=== PATIENT | female | born 1985 | race Caucasian/White ===

== ENCOUNTER → 2022-08-18 09:37 | Outpatient (CLI) | payer OTHER, SELFPAY ==
--- NOTE | ~2022-08-18 | US_ITS ---
EXAMINATION: US pelvic complete w TV DATE: 08/18/2022 10:24 INDICATION: Abnormal uterine bleeding Comparison:No prior studies for comparison. TECHNIQUE: Multiple transabdominal and endovaginal sonographic images of the pelvis performed. FINDINGS: The uterus measures 11.6 x 5.3 x 6.1 cm. There are uterine fibroids, largest measuring 1.4 cm. There is a smaller 1.1 cm fibroid posteriorly. The endometrial complex measures 8 mm. There are n abothian cysts. The right ovary measures 4.7 x 2.2 x 3.6 cm and the left ovary measures 4 x 2.9 x 2.6 cm. There are small follicles in each ovary. Normal doppler signal in both ovaries. There is no free fluid in the pelvis. There are no abnormal masses seen on either side. IMPRESSION: 1. Enlarged fibroid uterus. Reviewed, dictated and finalized at location A. IMPRESSION: 1. Enlarged fibroid uterus.
== END ==
PROVIDERS: PCP Obstetrics & Gynecology; Visit Provider Obstetrics & Gynecology
DX: N93.9 Abnormal uterine and vaginal bleeding, unspecified (principal); D25.9 Leiomyoma of uterus, unspecified
CPT/HCPCS: 76830; 76856

== ENCOUNTER 2022-08-18 10:38 | Outpatient (CLI) | payer OTHER, SELFPAY ==
[2022-08-18 11:12] LABS: Basophils Percent Auto 0.4 % (0.2-1.2); Eosinophils Absolute Auto 0.1 K/mm3 (0-0.3); Hematocrit 26.9 % (37.0-47.0); Hemoglobin 7.6 g/dL (12.0-15.0); Immature Granulocyte Absolute 0.02 K/mm3 (0.00-0.031); Immature Granulocyte Percent A 0.4 % (0-0.5); Lymphocytes Percent Auto 30.1 % (18.3-44.2); Mean Corpuscular HGB Conc 28.3 g/dl (32-36); Mean Corpuscular Hemoglobin 21.6 pg (26-34); Mean Corpuscular Volume 76.4 fl (80-100); Mean Platelet Volume 9.7 fl (7.4-10.4); Monocytes Absolute Auto 0.3 K/mm3 (0.1-0.6); Neutrophils Absolute Auto 2.8 K/mm3 (1.3-6.7); Neutrophils Percent Auto 60.1 % (45.5-73.1); Platelet Count Result 349 k/mm3 (150-375); Red Blood Count 3.52 M/mm3 (4.2-5.4); Red Cell Distribution Width 17.2 % (11.5-14.5); White Blood Count 4.7 K/mm3 (4.5-10.0)
[2022-08-18 11:39] LABS: Beta HCG Quantitative < 2.39 mIU/ML
[2022-08-18 11:48] LABS: Ovalocytes 1+ (NORMAL); Platelet Estimate Adequate (Adequate); Poikilocytosis 1+ (NORMAL); Schistocytes None Seen (NORMAL)
[2022-08-21 12:06] LABS: DHEA-Sulfate 179 mcg/dL (23-266)
[2022-08-21 14:13] LABS: Testosterone Free 2.4 pg/mL (0.1-6.4); Testosterone Total 21 ng/dL (2-45)
[2022-08-22 07:09] LABS: FSH 7.5 mIU/mL (***); Progesterone 0.3 ng/mL (***); Prolactin 19.4 ng/mL (***)
[2022-08-26 04:11] LABS: Estradiol, Ultrasensitive 29 pg/mL
== END 2022-08-18 10:39 | disposition home or self-care (01) ==
LOC: ANHLAB 10:40
PROVIDERS: PCP Internal Medicine; Visit Provider Obstetrics & Gynecology
DX: N93.9 Abnormal uterine and vaginal bleeding, unspecified (principal)
CPT/HCPCS: 36415; 76830; 76856; 82627; 82670; 83001; 84144; 84146; 84402; 84403; 84702; 85025

== ENCOUNTER 2022-08-19 00:34 | Day surgery (SDC) | payer OTHER, SELFPAY ==
[2022-08-18 09:15] VITALS: BMI 45.1
--- NOTE | 2022-08-18 09:20 | PC.NURSE ---
Report to the Outpatient Waiting Room, entrance under the green pavilion located off [facility], at time 1000 on date 08/19/22. OR Time: 1200. Time changes happen often and if your time is changed the preop area will call you the afternoon before. - You and your visitor will be asked to self-screen and do not enter if you have any COVID symptoms. - Only one visitor and NO children visitors are allowed at this time. - The patient visitor is requested to leave or wait in car when not with patient due to restrictions. - A mask is required within the hospital. Patients may have clear liquids (water, carbonated beverages, clear teas, apple juice) until 3 hours prior to surgery with a maximum of 20 ounces. - No food from midnight until time of surgery Take the following medications with a SIP of water the morning of surgery: FLUOXETINE Medications to discontinue per physician: N/A Date to take last dose: N/A Please no make-up, nail colombian, hairspray, perfume, deodorant, or body powder the day of surgery. No jewelry (including any body piercings) or valuables the day of surgery, leave them at home. Please take a shower or bath the night before, or the morning of, surgery with an antibacterial soap. Wear comfortable, loose fitting clothing. - Jewelry must be removed prior to entering the operating room. Rings and piercings that are not removed may be cut off. - The hospital will not accept responsibility for valuables. - Please leave all valuables, including medications, at home the day of surgery. If you are going home after surgery, a licensed electric truck driver must drive you home. - NO public transportation without another adult. - We recommend that an adult stay with you for 24 hours following discharge. - We also recommend that you do not drive, make important decision, drink alcoholic beverages, or take any drugs that were not prescribed by your health care provider for at least 24 hours after your discharge time. Follow any additional instructions given to you from your surgeon. If you or anyone in your household have experienced Covid symptoms in the past week, please notify your surgeon or the nurse liaison at the phone number below for possible testing. Telephone instructions given to PT - EVONNE VEGA and asked if any additional questions and then verbalized understanding. Patient advised to call surgeon office or pre surgery nurse liaison [phone] if any additional questions.
--- NOTE | 2022-08-18 16:57 | PM.IMHP ---
H&P: HPI History of Present Illness Date/Time: 08/18/22 16:57 Chief Complaint: abnormal vaginal bleeding Narrative: Antionette is a 36yo P1001, LMP 07/23/22 who presents for surgery for AUB. She was last seen in 01/2021 where she was reporting irregular bleeding (in 2019, she was going months without a cycle). PCOS w/u was negative last year at that time (we don't have US results). She reports this cycle started about 1 month ago and continues to be very heavy; with golf ball sized clots. Went to [facility] last night and was told she's anemic. The prior cycles were normal, monthly, not too heavy or painful. She has been having unprotected intercourse. Beta HCG was negative 08/18/22; but hemoglobin was noted to be 7.6. [facility] PERFORMER US 08/18/22 showed fibroid uterus, lining 8mm, polycystic ovaries. Review of Systems Review of Systems: All systems reviewed & are unremarkable except as noted in HPI and below PMFSH Past Medical History Medical History (Updated 08/18/22 @ 17:01 by Margret Barriga MD) Anxiety disorder Asthma Hypertension Obesity Sleep apnea Surgical History Surgical History Delivery by section Family History Family History Other Diabetes mellitus Hypertension Social History Social History Smoking status: Never smoker Alcohol intake: never Substance use: never Substance use type: does not use Gender identity (if verbalized by the patient): Female Sexual Orientation (if Verbalized by the Patient): Straight or Heterosexual Spiritual care concerns: No Meds Home Medications and Allergies Home Medications Medication Instructions Recorded Confirmed Type ferrous sulfate 325 mg (65 mg 325 mg PO BID #30 tabs 08/18/22 Rx iron) tablet fluoxetine 20 mg capsule 20 mg PO DAILY 08/18/22 08/18/22 History lisinopril 30 mg tablet 30 mg PO DAILY 08/18/22 08/18/22 History omeprazole 20 mg capsule,delayed 20 mg PO DAILY 08/18/22 08/18/22 History release Allergies Allergy/AdvReac Type Severity Reaction Status Date / Time doxycycline Allergy Severe Rash Uncoded 08/18/22 09:14 Effexor Allergy Severe Unknown Uncoded 08/18/22 09:14 Lexapro Allergy Severe Unknown Uncoded 08/18/22 09:14 Exam Const: General: cooperative, comfortable and no acute distress Nutritional Appearance: obese morbidly obese Resp: Effort & Inspection: normal respiratory effort Cardio: Rate: regular rate GI: Inspection: normal to inspection GI Palp: No abdominal tenderness and Yes Soft to palpation : Other: deferred to OR Skin: General skin exam: normal color Neuro: General: patient oriented x3 Extrem: General: normal to inspection Assessment and Plan Assessment and plan (1) Abnormal uterine bleeding: Code(s): N93.9 - Abnormal uterine and vaginal bleeding, unspecified Status: Acute (2) Anemia: Qualifiers: Anemia type: iron deficiency Iron deficiency anemia type: chronic blood loss Qualified Code(s): D50.0 - Iron deficiency anemia secondary to blood loss (chronic) Code(s): D64.9 - Anemia, unspecified Status: Acute Plan - Proceed with hysteroscopy with dilation and curettage; possible myomectomy if submucosal fibroid noted - Risks and benefits explained in detail - Will start progesterone post-op to prevent further bleeding/thickened lining
[2022-08-19 10:34] VITALS: BP 138/79; PULSE 85; RESP 18; TEMP 36.3; O2SAT 100
[2022-08-19] MEDS: ACETAMINOPHEN 500 MG TABLET 1000 MG PO (10:52)
--- NOTE | 2022-08-19 10:59 | P.PNAN_ITS ---
Anes - Initial Pre Proc Eval Procedure: Operation Date: 08/19/22 12:00 Proposed Procedures p Hysteroscopy with Dilation and Curettage - Margret Barriga MD Date/Time: 08/19/22 10:59 Surgeon: Margret Barriga MD Pre Op Diagnosis: Menometrorrhagia Patient Data Age: 36 Gender: F Height: 1.55 m Weight: 108.41 kg Allergies Allergy/AdvReac Type Severity Reaction Status Date / Time doxycycline Allergy Severe Rash Uncoded 08/18/22 09:14 Effexor Allergy Severe Unknown Uncoded 08/18/22 09:14 Lexapro Allergy Severe Unknown Uncoded 08/18/22 09:14 Home Medications Medication Instructions Recorded Confirmed Type ferrous sulfate 325 mg (65 mg 325 mg PO BID #30 tabs 08/18/22 Rx iron) tablet fluoxetine 20 mg capsule 20 mg PO DAILY 08/18/22 08/18/22 History lisinopril 30 mg tablet 30 mg PO DAILY 08/18/22 08/18/22 History omeprazole 20 mg capsule,delayed 20 mg PO DAILY 08/18/22 08/18/22 History release Patient hx anesthesia problems: none Family hx anesthesia problems: none Results Review: All pre-operative results and documents have been reviewed as part of the pre- operative evaluation. [facility] Past Medical History Medical History Anxiety disorder Asthma Hypertension Obesity Sleep apnea Surgical History Surgical History Delivery by section Family History Family History Other Diabetes mellitus Hypertension Social History Social History Smoking status: Never smoker Alcohol intake: never Substance use: never Substance use type: does not use Living arrangements: with family Gender identity (if verbalized by the patient): Female Sexual Orientation (if Verbalized by the Patient): Straight or Heterosexual Spiritual care concerns: No Anes - Eval Final PreProcedure Day of Procedure 08/19/22 10:59 Patient weight: morbidly obese Heart: regular rate and rhythm Lungs: clear to auscultation Airway: Mallampati scale class II and special considerations poor dentition Neurological: alert and oriented Last oral intake: >/= 8 hours ASA classification: III Emergent: no Anesthetic plan: proceed Anesthesia type and monitoring: general GIVS and standard monitoring Results Review: All pre-operative results and documents have been reviewed as part of the pre- operative evaluation. Informed Consent: The patient's anesthetic plan and its attendant risks and benefits were discussed with the patient/family/POA. Questions were solicited and answers provided to the satisfaction of the patient/family/POA.
--- NOTE | 2022-08-19 11:03 | WPDHPUPDATE1 ---
History and Physical Update Update Date/Time: 08/19/22 11:03 History and Physical has been reviewed, including an updated exam of the patient. There are NO changes in the patient's condition. Risks, benefits, and alternatives have been discussed and questions answered. Patient agrees to proceed with procedure.
[2022-08-19] MEDS: KETOROLAC 30 MG/ML VIAL (*BKC) IV PUSH (12:15)
--- NOTE | 2022-08-19 12:59 | W.PM.PROC2 ---
Procedure Note - Detailed Date of Procedure 08/19/22 Pre-op Diagnosis Menometrorrhagia Post-op Diagnosis Same Procedure Performed Hysteroscopy with dilation and curettage Surgeon Margret Barriga MD Anesthesia MAC Findings Normal cervix; anteverted uterus; diffusely thickened endometrium arising from posterior uterine wall extending to the left lateral wall; no obvious fibroids were noted. Right tubal ostia visualized and normal. Good hemostasis noted at end of case. Fluid Deficit: 100cc. Description of Procedure Antionette was taken to the operating room where she was placed under anesthesia with an LMA. She was then prepped and draped in the usual sterile fashion in the dorsal lithotomy position with her legs in low Long stirrups. A time-out was performed and no preoperative antibiotics were indicated. A bivalve speculum was placed within the vagina where the cervix was easily identified. The anterior lip of cervix was grasped with single-tooth tenaculum and the uterus was attempted to be sounded, however the uterus was noted to be very anteverted. The cervix was then serially dilated to allow for the hysteroscope. The hysteroscope was advanced into the uterine cavity without complications. Throughout the entire uterine cavity I noted profusely thickened endometrium. There was possibly a mass vs just significantly thickened tissue arising from the posterior uterine wall, extending to the left lateral wall. The anterior uterine wall was normal and the right tubal ostia was visualized. The hysteroscope was removed and a curettage was performed with a significant amount of tissue removed. The hysteroscope was once again advanced into the uterine cavity, however profuse endometrium still remained. I continued performing another curettage until good uterine cry was felt throughout the uterus. The hysteroscope was once again advanced into the uterine cavity but thickened endometrium was still visualized. Using polyp forceps a decent amount of tissue was removed. The hysteroscope was once again advanced into the uterine cavity and the cavity appeared to be more normal, however with the amount of bleeding noted, I was unable to visualize the left tubal ostia. All instruments were removed from the vagina sponge, lap, instrument, and needle counts were correct at the end of the procedure. The patient was awoken from anesthesia and taken recovery in a stable condition with plans of same-day discharge home. Estimated Blood Loss 10 IV Fluids 1,000 Pathology Yes (endometrial curettings) Complications No immediate complications Condition Stable Disposition Same day [facility] Billing Surgery - Charge Forward: Surgery Billing
[2022-08-19 13:00] VITALS: BP 134/88; PULSE 67; RESP 16; O2SAT 100
[2022-08-19] MEDS: LACTATED RINGERS 1,000 ML 30 ML IV CONT (13:00)
[2022-08-19 13:30] VITALS: BP 132/93; PULSE 61; RESP 16
[2022-08-19 14:00] VITALS: BP 138/88; PULSE 56; RESP 16
[2022-08-19] MEDS: oxyCODONE HCL (*CRX) 5 MG TAB IR PO (14:12)
[2022-08-19 14:30] VITALS: BP 135/82; PULSE 61; RESP 16
== END 2022-08-19 15:05 | disposition home or self-care (01) ==
PROVIDERS: PCP Internal Medicine; Visit Provider Obstetrics & Gynecology
PROC: 0U5B8ZZ Destruction of Endometrium, Via Natural or Artificial Opening Endoscopic (ICD-10-PCS; CPT 58563; principal; 2022-08-19 12:00)
DX: N92.1 Excessive and frequent menstruation with irregular cycle (principal); D50.0 Iron deficiency anemia secondary to blood loss (chronic); I10 Essential (primary) hypertension; J45.909 Unspecified asthma, uncomplicated; G47.30 Sleep apnea, unspecified; F41.9 Anxiety disorder, unspecified; E66.01 Morbid (severe) obesity due to excess calories; Z68.41 Body mass index [BMI] 40.0-44.9, adult
CPT/HCPCS: 58558; 88305; A9270; J1885; J2250; J2405; J2704; J3010; J7030; J7120

== ENCOUNTER 2024-12-06 02:55 | Day surgery (SDC) | payer OTHER, SELFPAY ==
[2024-11-14 12:36] VITALS: BMI 43.9
[2024-12-06 11:31] VITALS: BP 131/68; PULSE 80; RESP 16; TEMP 36.5; O2SAT 99; BMI 43.7
[2024-12-06 11:34] LABS: BEDSIDEPREGUCG Negative (Negative)
--- NOTE | 2024-12-06 11:38 | P.PNAN_ITS ---
Anes - Initial Pre Proc Eval Procedure: Operation Date: 12/06/24 13:00 Proposed Procedures p Esophagogastroduodenoscopy - Juan Esquivel MD Date/Time: 12/06/24 11:38 Surgeon: Juan sEquivel MD Pre Op Diagnosis: periumbilical pain Patient Data Age: 39 Gender: F Height: 1.57 m Weight: 108.4 kg Last Vital Signs Temp 36.5 C 12/06/24 11:31 Pulse 80 12/06/24 11:31 Resp 16 12/06/24 11:31 BP 131/68 12/06/24 11:31 Pulse Ox 99 12/06/24 11:31 O2 Del Method Room Air 12/06/24 11:31 Allergies Allergy/AdvReac Type Severity Reaction Status Date / Time doxycycline Allergy Severe Rash Uncoded 12/06/24 11:29 Lexapro Allergy Severe Unknown Uncoded 12/06/24 11:29 Effexor AdvReac Severe Blacked out Uncoded 12/06/24 11:29 Home Medications ?Medication ?Instructions ?Recorded ?Confirmed ?Type lisinopril 30 mg tablet 30 mg PO DAILY 08/18/22 12/06/24 History ferrous sulfate 325 mg (65 mg 325 mg PO BID 90 days #180 tabs 05/15/24 12/06/24 Rx iron) tablet omeprazole 40 mg capsule,delayed 40 mg PO BID #60 caps 08/24/24 12/06/24 Rx release cholecalciferol (vitamin D3) 125 250 mcg PO DAILY 11/14/24 12/06/24 History mcg (5,000 unit) tablet (Vitamin D3) fluoxetine 20 mg capsule 20 mg PO DAILY 11/14/24 12/06/24 History Laboratory Tests 12/06/24 11:31 POC Urine HCG, Qual Negative (Negative) Patient hx anesthesia problems: none Family hx anesthesia problems: none Results Review: All pre-operative results and documents have been reviewed as part of the pre- operative evaluation. [facility] Past Medical History Medical History Status post hysteroscopy Abnormal uterine bleeding Obesity Sleep apnea Hypertension Asthma Anxiety disorder Surgical History Surgical History Delivery by section Family History Family History Other Diabetes mellitus Hypertension Social History Social History Smoking status: Never smoker Alcohol intake: never Substance use: never Substance use type: does not use Living arrangements: with family Additional living arrangements comments: Occupation/Education: unemployed Gender identity (if verbalized by the patient): Female Sexual Orientation (if Verbalized by the Patient): Straight or Heterosexual Spiritual care concerns: No Anes - Eval Final PreProcedure Day of Procedure 12/06/24 11:38 Patient weight: morbidly obese Heart: regular rate and rhythm Lungs: clear to auscultation Airway: Mallampati scale class II Neurological: alert and oriented Last oral intake: >/= 8 hours ASA classification: III Emergent: no Anesthetic plan: proceed Anesthesia type and monitoring: general GIVS Results Review: All pre-operative results and documents have been reviewed as part of the pre- operative evaluation. Informed Consent: The patient's anesthetic plan and its attendant risks and benefits were discussed with the patient/family/POA. Questions were solicited and answers provided to the satisfaction of the patient/family/POA.
[2024-12-06] MEDS: LACTATED RINGERS 1,000 ML 150 ML IV CONT (11:46)
--- NOTE | 2024-12-06 11:47 | PM.HPGS ---
History of Present Illness History of Present Illness Consent: Risks, benefits, and alternatives have been discussed and questions answered. Patient agrees to proceed with procedure. Chief complaint: periumbilical pain Narrative: Antionette Young is a 39 year old female with chronic nausea for several years, also gerd on omeprazole, never had egd Review of Systems Review of Systems: All systems reviewed & are unremarkable except as noted in HPI and below PMFSH Past Medical History Medical History (Updated 12/06/24 @ 11:48 by Juan Esquivel MD) GERD (gastroesophageal reflux disease) Status post hysteroscopy Abnormal uterine bleeding Obesity Sleep apnea Hypertension Asthma Anxiety disorder Surgical History Surgical History Delivery by section Family History Family History Other Diabetes mellitus Hypertension Social History Social History Smoking status: Never smoker Alcohol intake: never Substance use: never Substance use type: does not use Living arrangements: with family Additional living arrangements comments: Occupation/Education: unemployed Gender identity (if verbalized by the patient): Female Sexual Orientation (if Verbalized by the Patient): Straight or Heterosexual Spiritual care concerns: No Meds Home Medications and Allergies Home Medications ?Medication ?Instructions ?Recorded ?Confirmed ?Type lisinopril 30 mg tablet 30 mg PO DAILY 08/18/22 12/06/24 History ferrous sulfate 325 mg (65 mg 325 mg PO BID 90 days #180 tabs 05/15/24 12/06/24 Rx iron) tablet omeprazole 40 mg capsule,delayed 40 mg PO BID #60 caps 08/24/24 12/06/24 Rx release cholecalciferol (vitamin D3) 125 250 mcg PO DAILY 11/14/24 12/06/24 History mcg (5,000 unit) tablet (Vitamin D3) fluoxetine 20 mg capsule 20 mg PO DAILY 11/14/24 12/06/24 History Allergies Allergy/AdvReac Type Severity Reaction Status Date / Time doxycycline Allergy Severe Rash Uncoded 12/06/24 11:29 Lexapro Allergy Severe Unknown Uncoded 12/06/24 11:29 Effexor AdvReac Severe Blacked out Uncoded 12/06/24 11:29 Vital Signs Vital Signs - 24 hr 12/06/24 11:31 Temperature 97.7 F Pulse Rate 80 Respiratory Rate 16 Blood Pressure 131/68 Pulse Oximetry 99 Oxygen Delivery Room Air Exam Const: General: comfortable, no acute distress and obese HENMT: Face/Nose/Sinus: Normal nares present Eyes: General: appearance normal, both eyes and all related structures Neck: Neck: no JVD Resp: Auscultation: clear to auscultation bilaterally Cardio: Rate: regular rate Rhythm: regular rhythm GI: Inspection: non-distended GI Palp: Yes Soft to palpation Skin: General skin exam: normal color Neuro: General: gait normal Speech: normal speech Extrem: General: normal to inspection Psych: Mental Status: mental status grossly normal Assessment and Plan Assessment and plan (1) Nausea: Code(s): R11.0 - Nausea Status: Acute Assessment and Plan: egd with bx (2) GERD (gastroesophageal reflux disease): Code(s): K21.9 - Gastro-esophageal reflux disease without esophagitis Status: Acute
[2024-12-06 11:54] VITALS: BP 97/51; PULSE 77; RESP 17; O2SAT 99
[2024-12-06 12:04] VITALS: BP 91/50; PULSE 74; RESP 20; O2SAT 99
[2024-12-06 12:14] VITALS: BP 104/61; PULSE 77; RESP 19; O2SAT 99
== END 2024-12-06 12:31 | disposition home or self-care (01) ==
PROVIDERS: Anesthesiology; PCP Internal Medicine; Referring Provider Nurse Practitioner Family; Visit Provider Internal Medicine Gastroenterology
PROC: 0DJ08ZZ Inspection of Upper Intestinal Tract, Via Natural or Artificial Opening Endoscopic (ICD-10-PCS; CPT 43239; principal; 2024-12-06 13:00)
DX: K21.9 Gastro-esophageal reflux disease without esophagitis (principal); I10 Essential (primary) hypertension; J45.909 Unspecified asthma, uncomplicated; F41.9 Anxiety disorder, unspecified; G47.30 Sleep apnea, unspecified; E66.01 Morbid (severe) obesity due to excess calories; Z68.41 Body mass index [BMI] 40.0-44.9, adult; Z98.890 Other specified postprocedural states
CPT/HCPCS: 43239; 88305; J2704; J7120

== ENCOUNTER 2025-05-20 20:54 | Emergency (ER) | payer OTHER, SELFPAY ==
--- NOTE | ~2025-05-20 | CT_ITS ---
Clinical Indication: Chest pain, abdominal pain CT Scan of the Chest, Abdomen, and Pelvis with Contrast: Technique: Contiguous sections were acquired throughout the chest, abdomen, and pelvis after intraven ous administration of 100 cc of Omnipaque 350. Dose reduction technique was used on this scan by mendy moody automated exposure control and iterative reconstruction technique. The dose-length product (DL P) was 2287.12 mGy-cm. Findings: There is no evidence of any significant mediastinal, hilar or axillary lymphadenopathy. The mediastin al soft tissues appear normal. No pulmonary embolus. No aortic aneurysm or dissection. There is no evidence of pleural or pericardial effusion. The lungs are clear. No pulmonary nodules or infiltrates are noted. The liver, spleen, pancreas, gallbladder, adrenals and kidneys are within normal limits. No evidence of aortic aneurysm. No lymphadenopathy. No bowel obstruction or bowel wall thickening. There is no evidence to suggest acute appendicitis. Urinary bladder is unremarkable. No significant adnexal mass seen. No ascites. Impression: No significant abnormalities seen. Reviewed, dictated and finalized at [facility]. Impression: No significant abnormalities seen.
--- NOTE | ~2025-05-20 | XR_ITS ---
XR chest 2V Ordering provider: Johnny Bauer MD History: 39 years Female with . CHEST PAIN, SOB. . Comparison: None. FINDINGS: MEDIASTINUM: The cardiac silhouette is not enlarged. LUNGS: No infiltrates, effusions or pneumothorax. OTHER: No free air under the diaphragm. IMPRESSION: No acute cardiopulmonary pathology. Reviewed, dictated and finalized at location A.
--- NOTE | 2025-05-20 20:55 | ECG_ITS ---
Test Date: 2025-05-20 21:07:53 Measurements Intervals [place] Rate: 84 P: 27 MA: 164 QRS: 21 QRSD: 90 T: 32 QT: 344 QTc: 409 Interpretive Statements SINUS RHYTHM CONSIDER INFERIOR INFARCT, AGE INDETERMINATE ABNORMAL ECG No previous ECG available for comparison Electronically Signed On 05-21-2025 07:02:11 CDT by Linwood Trinidad D.O.
[2025-05-20 21:14] VITALS: BP 129/83; PULSE 95; RESP 18; TEMP 36.6; O2SAT 98
--- NOTE | 2025-05-20 22:34 | PC.NURSE ---
Patient comes to desk and states I now have a stabbing pain in my left ear drum. Patient then turns to walk back to waiting room with a steady unassisted gait.
--- NOTE | 2025-05-20 22:46 | PC.NURSE ---
Triage tech attempted to get blood on pt and was unsuccessful at this time.
[2025-05-20 23:40] VITALS: BP 136/89; PULSE 91; RESP 15; O2SAT 96
[2025-05-20 23:41] LABS: Basophils Percent Auto 0.4 % (0.2-1.2); Eosinophils Absolute Auto 0.1 K/mm3 (0-0.3); Eosinophils Percent Auto 2.4 % (0-4.4); Hematocrit 36.2 % (37.0-47.0); Hemoglobin 11.6 g/dL (12.0-15.0); Immature Granulocyte Absolute 0.01 K/mm3 (0.00-0.031); Immature Granulocyte Percent A 0.2 % (0-0.5); Lymphocytes Absolute Auto 1.63 K/mm3 (0.9-3.2); Lymphocytes Percent Auto 30.2 % (18.3-44.2); Mean Corpuscular Hemoglobin 29.1 pg (26-34); Mean Platelet Volume 9.3 fl (7.4-10.4); Monocytes Absolute Auto 0.4 K/mm3 (0.1-0.6); Monocytes Percent Auto 7.4 % (2.6-8.5); Neutrophils Absolute Auto 3.2 K/mm3 (1.3-6.7); Neutrophils Percent Auto 59.4 % (45.5-73.1); Platelet Count Result 275 k/mm3 (150-375); Red Blood Count 3.98 M/mm3 (4.2-5.4); Red Cell Distribution Width 12.7 % (11.5-14.5); White Blood Count 5.4 K/mm3 (4.5-10.0)
[2025-05-20 23:52] LABS: Prothrombin Time 13.1 Seconds (11.1-14.7)
[2025-05-20 23:54] LABS: Alanine Aminotransferase 27 U/L (6-35); Albumin Level 4.3 g/dL (3.5-5.1); Alkaline Phosphatase 55 U/L (38-126); Anion Gap 9 mmol/L (4-12); Aspartate Amino Transferase 31 U/L (14-36); Bilirubin,Total 0.2 mg/dL (0.2-1.3); Blood Urea Nitrogen 17 mg/dL (7-17); Calcium 9.5 mg/dL (8.4-10.2); Carbon Dioxide 27 mmol/L (22-30); Chloride 104 mmol/L (98-107); Estimated CRCL calculation 74 ml/min; Estimated Glomerular Filt Rate 54; Glucose 104 mg/dL (65-110); Lipase 95 U/L (23-300); Partial Thromboplastin Time 30.1 Seconds (22.3-36.8); Potassium 4.4 mmol/L (3.4-5.0); Sodium 140 mmol/L (137-145); Total Protein 7.9 g/dL (6.3-8.2)
[2025-05-21 00:07] LABS: Troponin I < 0.012 ng/mL (0.000-0.034)
--- NOTE | 2025-05-21 01:21 | ED.GENADULT ---
HPI - General Adult General Chief complaint: Chest Pain Stated complaint: Chest painx2 days, sob Time Seen by Provider: 05/20/25 23:20 History of Present Illness HPI narrative: Patient is a a 39-year-old female who presents emergency department with chief complaint of chest pain. Patient reports the last 2 days she has had sharp pain radiates at removed back in the front of her chest the patient states that she has felt very anxious with this reports the pain does radiate down into her abdomen. The patient reports the pain is sharp reports not improvement the patient does report that she has been seen a [place] for similar symptoms Related Data Home Medications ?Medication ?Instructions ?Recorded ?Confirmed ?Last Taken ?Type lisinopril 30 mg tablet 30 mg PO DAILY 08/18/22 12/06/24 12/05/24 History cholecalciferol (vitamin D3) 125 250 mcg PO DAILY 11/14/24 12/06/24 12/05/24 History mcg (5,000 unit) tablet (Vitamin D3) fluoxetine 20 mg capsule 20 mg PO DAILY 11/14/24 12/06/24 12/05/24 History Allergies Allergy/AdvReac Type Severity Reaction Status Date / Time doxycycline Allergy Severe Rash Uncoded 12/06/24 11:29 Lexapro Allergy Severe Unknown Uncoded 12/06/24 11:29 Effexor AdvReac Severe Blacked out Uncoded 12/06/24 11:29 Review of Systems Review of Systems: A 10 system review of systems was completed on the patient and is negative except for what is stated in the HPI. Nursing and ancillary documentation was reviewed. [facility] Past Medical History Medical History GERD (gastroesophageal reflux disease) Status post hysteroscopy Abnormal uterine bleeding Obesity Sleep apnea Hypertension Asthma Anxiety disorder Surgical History Surgical History Delivery by section Family History Family History Other Diabetes mellitus Hypertension Social History Social History Smoking status: Never smoker Alcohol intake: never Substance use: never Substance use type: does not use Living arrangements: with family Additional living arrangements comments: Occupation/Education: unemployed Gender identity (if verbalized by the patient): Female Sexual Orientation (if Verbalized by the Patient): Straight or Heterosexual Spiritual care concerns: No Exam Narrative: GENERAL: Well-appearing, well-nourished, and in no acute distress. HEAD: Normocephalic, atraumatic. EYES: PERRLA and EOMI. ENT: Nares clear, no rhinorrhea or epistaxis. Mucous membranes moist. NECK: Supple. CHEST: Clear to auscultation. No respiratory distress. Chest wall is tender to palpation HEART: Regular rate and rhythm. No murmur heard. Normal peripheral pulses. ABDOMEN: Soft, tenderness to palpation in the epigastric and right upper quadrant, nondistended, normal active bowel sounds. EXTREMITIES: Normal range of motion. No edema. SKIN: Warm, dry, no rash. NEURO: No focal deficits. Alert and oriented x3. PSYCH: Normal mood and affect. Course Vital Signs Vital signs: Vital Signs Temperature 36.6 C 05/20/25 21:14 Pulse Rate 95 05/20/25 21:14 Respiratory Rate 18 05/20/25 21:14 Blood Pressure 129/83 05/20/25 21:14 Pulse Oximetry 98 05/20/25 21:14 Oxygen Delivery Room Air 05/20/25 21:14 Temperature 36.6 C 05/20/25 21:14 Pulse Rate 91 05/20/25 23:40 Respiratory Rate 15 05/20/25 23:40 Blood Pressure 136/89 05/20/25 23:40 Pulse Oximetry 96 05/20/25 23:40 Oxygen Delivery Room Air 05/20/25 21:14 Medical Decision Making [facility] Narrative Medical decision making narrative: Differential diagnosis includes ACS, chest wall pain, pulmonary embolism, intra-abdominal infection Laboratory studies were obtained that showed normal CBC CMP is within normal limits creatinine was 1.12 Liver enzymes were normal Chest x-ray showed no focal infiltrate EKG showed no acute ischemic change CTA chest with an abdomen pelvis showed no evidence of PE and no evidence of acute intra-abdominal pathology Vital Signs Vital Signs: Vital Signs Temperature 36.6 C 05/20/25 21:14 Pulse Rate 95 05/20/25 21:14 Respiratory Rate 18 05/20/25 21:14 Blood Pressure 129/83 05/20/25 21:14 Pulse Oximetry 98 05/20/25 21:14 Oxygen Delivery Room Air 05/20/25 21:14 Temperature 36.6 C 05/20/25 21:14 Pulse Rate 91 05/20/25 23:40 Respiratory Rate 15 05/20/25 23:40 Blood Pressure 136/89 05/20/25 23:40 Pulse Oximetry 96 05/20/25 23:40 Oxygen Delivery Room Air 05/20/25 21:14 Lab Data 05/20/25 23:34 05/20/25 23:34 Labs: Lab Results 05/20/25 Range/Units 23:34 WBC 5.4 (4.5-10.0) K/mm3 RBC 3.98 L (4.2-5.4) M/mm3 Hgb 11.6 L D (12.0-15.0) g/dL Hct 36.2 L (37.0-47.0) % MCV 91.0 (80-100) fl MCH 29.1 (26-34) pg MCHC 32.0 (32-36) g/dl RDW 12.7 (11.5-14.5) % Plt Count 275 (150-375) k/mm3 MPV 9.3 (7.4-10.4) fl Immature Gran % (Auto) 0.2 (0-0.5) % Neut % (Auto) 59.4 (45.5-73.1) % Lymph % (Auto) 30.2 (18.3-44.2) % [place] % (Auto) 7.4 (2.6-8.5) % Eos % (Auto) 2.4 (0-4.4) % Baso % (Auto) 0.4 (0.2-1.2) % Lymph # (Auto) 1.63 (0.9-3.2) K/mm3 [place] # (Auto) 0.4 (0.1-0.6) K/mm3 Eos # (Auto) 0.1 (0-0.3) K/mm3 Baso # (Auto) 0.0 (0.0-0.1) K/mm3 Abs Immat Gran (auto) 0.01 (0.00-0.031) K/mm3 Absolute Neuts (auto) 3.2 (1.3-6.7) K/mm3 Absolute Nucleated RBC 0.000 (0.0-0.012) K/mm3 Nucleated RBC % 0.0 (0.0-0.2) % PT 13.1 (11.1-14.7) Seconds INR 1.0 APTT 30.1 (22.3-36.8) Seconds Sodium 140 (137-145) mmol/L Potassium 4.4 (3.4-5.0) mmol/L Chloride 104 (98-107) mmol/L Carbon Dioxide 27 (22-30) mmol/L Anion Gap 9 (4-12) mmol/L BUN 17 (7-17) mg/dL Creatinine 1.12 H (0.7-1.0) mg/dL Estim Creat Clear Calc 74 ml/min Estimated GFR 54 L (59 - ) Glucose 104 (65-110) mg/dL Calcium 9.5 (8.4-10.2) mg/dL Total Bilirubin 0.2 (0.2-1.3) mg/dL AST 31 (14-36) U/L ALT 27 (6-35) U/L Alkaline Phosphatase 55 (38-126) U/L Troponin I < 0.012 (0.000-0.034) ng/mL Total Protein 7.9 (6.3-8.2) g/dL Albumin 4.3 (3.5-5.1) g/dL Lipase 95 (23-300) U/L Discharge Plan Discharge Clinical Impression: Atypical chest pain, Abdominal pain Patient Disposition: Home Condition: Stable Instructions: Antibiotic Form, Chest Pain (ED), Abdominal Pain (ED) Patient Language: Welsh Prescriptions: No Action lisinopril 30 mg tablet 30 mg PO DAILY fluoxetine 20 mg capsule 20 mg PO DAILY cholecalciferol (vitamin D3) [Vitamin D3] 125 mcg (5,000 unit) tablet 250 mcg PO DAILY ferrous sulfate 325 mg (65 mg iron) tablet 325 mg PO BID 90 Days Qty: 180 2RF omeprazole 40 mg capsule,delayed release(DR/EC) See Rx Instructions .ROUTE .COMPLEX Qty: 60 3RF Dose Instruction: TAKE 1 CAPSULE BY MOUTH TWICE A DAY Rx Instructions: TAKE 1 CAPSULE BY MOUTH TWICE A DAY Follow-up/Referrals: Stuart,Evgeny Mujica MD [Primary Care Provider] - Time of Disposition: 01:31
== END 2025-05-21 01:45 | disposition home or self-care (01) ==
PROVIDERS: Emergency Provider Emergency Medicine; PCP Internal Medicine
DX: R07.89 Other chest pain (principal); R10.9 Unspecified abdominal pain; K21.9 Gastro-esophageal reflux disease without esophagitis; I10 Essential (primary) hypertension; J45.909 Unspecified asthma, uncomplicated; F41.9 Anxiety disorder, unspecified
CPT/HCPCS: 36415; 71046; 71275; 74177; 80053; 83690; 84484; 85025; 85610; 85730; 93005; 99284; Q9967

== ENCOUNTER 2025-06-20 08:46 | Outpatient (CLI) | payer OTHER, SELFPAY ==
--- NOTE | ~2025-06-20 | US_ITS ---
EXAMINATION: US pelvic complete w TV INDICATION: Abnormal uterine bleeding Comparison:No prior studies for comparison. TECHNIQUE: Multiple transabdominal and endovaginal sonographic images of the pelvis performed. FINDINGS: The uterus measures 11.6 x 5.3 x 6.1 cm. There are nabothian cysts. The endometrial complex measures 13 mm. The right ovary measures 4.7 x 2.2 x 3.6 cm and the left ovary measures 4 x 2.9 x 2.6 cm. There are small follicles in each ovary. Normal doppler signal in both ovaries. There is no free fluid in the pelvis. There are no abnormal masses seen on either side. IMPRESSION: 1. Enlarged uterus. Mild endometrial thickening. Reviewed, dictated and finalized at location A.
== END 2025-06-20 08:47 | disposition home or self-care (01) ==
LOC: GOSHIMG 08:46
PROVIDERS: PCP Obstetrics & Gynecology; Visit Provider Obstetrics & Gynecology
DX: R93.89 Abnormal findings on diagnostic imaging of other specified body structures (principal); N85.2 Hypertrophy of uterus; N93.9 Abnormal uterine and vaginal bleeding, unspecified
CPT/HCPCS: 76830; 76856